=== PATIENT | male | born 1935 | race African-American/Black ===

== ENCOUNTER 2018-05-31 08:00 | Emergency (ER) | payer OTHER ==
[2018-05-31] MEDS ORDERED: ACETAMINOPHEN 325 MG TABLET (FP) ONE (08:07)
[2018-05-31 08:10] VITALS: BMI 24.7
[2018-05-31] MEDS ORDERED: SODIUM CHLORIDE 0.9% 500 ML INFUS.BAG IV ONE (09:19)
--- NOTE | 2018-05-31 09:20 | PDOC ---
History of Present Illness - General Chief Complaint: Cold Symptoms Stated Complaint: ABD PAIN Time Seen by Provider: 05/31/18 08:43 History Source: Patient Exam Limitations: No Limitations - History of Present Illness Initial Comments: 05/31/18 10:00 HPI 83 YOM with h/o CAD s/p PCI, PPM, HTN, HLD, BPH presenting with x 2 days of productive yellow cough and associated general abdominal pain with coughing fits. +subjective chills, malaise. Tolerating PO and fluid intake, had some nausea this morning with eating. Yesterday, also noted to have clear discharge from eyes, without visual changes, redness or trauma. Denies fever, chills, chest pain, SOB, palpitation, dizziness, weakness, N, V, D , bladder and bowel problems, leg swelling, no ear pain/discharge, hearing disturbances. No sick contacts or travel. No new changes in medications. Allergies: NKA Past Medical History: CAD s/p PCI, PPM, HTN, HLD, BPH Social history: Lives with family. Former smoker, quit ~30 years ago. No smoking. No alcohol. No illicit drugs. Surgical history: hernia repair, PCI ROS Constitutional: no fevers or chills. +malaise HEENT: +clear eye discharge. no headache or dizziness. No congestion. No visual/ hearing disturbances. No ear pain, tinnitis. No sore throat or odynophagia. No eye pain, redness. CVS: no cp or syncope. Resp: no sob. +Cough Gastrointestinal: +abdominal pain, No nausea or vomiting. Genitourinary: no urinary sx, hematuria. MUSCULOSKELETAL: No joint pain and swelling. No neck or back pain. SKIN: no redness or skin changes, no discharge, no rash. No wounds. Hematologic: no easy bruising/bleeding. NEUROLOGIC: No headache, dizziness, LOC or altered mental status. No weakness, numbness or tingling. Allergic/Immunologic: no allergies All other systems reviewed and negative, or as documented in HPI. PE: General: Well appearing, awake and alert, NAD. HEENT: NCAT, PERRL, EOMI, clear conjunctiva, anicteric, moist mucus membranes, clear oropharynx, no oral lesions.. Neck: neck supple, FROM; no tenderness or meningeal signs. Resp: CTAB, normal and even respirations, no respiratory distress CVS: RRR, no murmurs, 2+ peripheral pulses throughout, no peripheral edema Abdomen: soft, NTND, no peritoneal signs. No CVAT. Back: nontender, normal inspection and ROM MSK: no edema, COHEN x4, ROM intact. No clubbing or cyanosis. normal bulk and tone. Extremities: no calf tenderness Neuro: alert, oriented appropriately; no focal neurologic deficits Skin: warm and well perfused, cap refill <2 sec, normal color Past History - Past Medical History Allergies/Adverse Reactions: Allergies Allergy/AdvReac Type Severity Reaction Status Date / Time No Known Allergies Allergy Verified 05/31/18 08:04 Home Medications: Ambulatory Orders Olmesartan/Hydrochlorothiazide [Benicar Hct 20-12.5 mg Tablet] 1 each PO DAILY 01/31/12 Aspirin Coated [Ecotrin -] 81 mg PO DAILY 07/27/13 Atorvastatin Ca [Lipitor] 10 mg PO HS 07/27/13 Metoprolol Succinate [Toprol XL -] 25 mg PO DAILY 07/27/13 Famotidine [Pepcid -] 20 mg PO DAILY 11/07/14 Tamsulosin HCl [Flomax] 0.4 mg PO DAILY 11/07/14 Cetirizine HCl [24Hour Allergy] 10 mg PO DAILY #30 tablet 10/04/17 Albuterol Sulfate Inhaler - [Ventolin HFA Inhaler -] 1 - 2 inh PO Q4H PRN #1 inhaler 05/31/18 Oseltamivir Phosphate [Tamiflu -] 75 mg PO DAILY 5 Days #10 capsule 05/31/18 Cardiac Disorders: Yes COPD: No HTN: Yes - Surgical History Abdominal Surgery: Yes (Hernia repair) Cardiac Surgery: Yes (STENT X4) - Immunization History Immunization Up to Date: Yes - Suicide/Smoking/Psychosocial Hx Smoking Status: No Smoking History: Former smoker Have you smoked in the past 12 months: No Number of Cigarettes Smoked Daily: 0 If you are a former smoker, when did you quit?: 1977 Information on smoking cessation initiated: No Hx Alcohol Use: No Drug/Substance Use Hx: No Substance Use Type: None Hx Substance Use Treatment: No *Physical Exam - Vital Signs Last Vital Signs Temp Pulse Resp BP Pulse Ox 101 F H 91 H 18 116/54 L 96 05/31/18 08:09 05/31/18 08:09 05/31/18 08:09 05/31/18 08:09 05/31/18 08:09 Moderate Sedation - Procedure Monitoring Vital Signs: Procedure Monitoring Vital Signs Temperature 101 F H 05/31/18 08:09 Pulse Rate 91 H 05/31/18 08:09 Respiratory Rate 18 05/31/18 08:09 Blood Pressure 116/54 L 05/31/18 08:09 O2 Sat by Pulse Oximetry (%) 96 05/31/18 08:09 Heart Score/ECG Review - ECG Impressions Normal ECG: Yes Comment:: 05/31/18 12:55 EKG normal sinus rhythm, no interval abnormalities, narrow QRS, ST and T wave segments and morphology normal. Nonspecific T wave abnormalities ED Treatment Course - LABORATORY CBC & Chemistry Diagram: 05/31/18 10:05 05/31/18 10:05 - RADIOLOGY Radiology Studies Ordered: Category Date Time Status CHEST PA & LAT [RAD] Stat Radiology 05/31/18 09:19 Ordered Medical Decision Making - Medical Decision Making 05/31/18 10:00 See HPI for details Vital signs reviewed, +fever; normal respirations, normal SPO2. well appearing nontoxic. DDx. pneumonia, pleurisy, influenza, electrolyte/metabolic derangements. Abdominal rectus strain. dehydration. Prior notes reviewed, including admissions, discharges and consultations. laboratory results and imaging reviewed, basic labs and lytes wnl, Influenza positive A CXR_no infiltrate/consolidation, no PTX, no effusion, normal cardiac silhouette. EKG normal sinus rhythm, no interval abnormalities, narrow QRS, ST and T wave segments and morphology normal. Nonspecific T wave abnormalities ED course: tylenol, fluids for hydration, repeat VS improved. no hypoxia. normal respirations. AP likely from coughing/strain on muscles, no peritoneal findings. Tamiflu dose for the flu, given elderly age and sx onset right at borderline, but with severity and sx rx albulterol inhaler with use prn cough Q4-6 hr respiratory precautions, antipyretics, hydration, rest. avoid contacts with risk patients such as young children, elderly and immunocompromised. dispo: Pt to be discharged in stable condition. Patient and family made aware of impression and plan, return precautions discussed (including but not limited to worsening pain or symptoms), fevers, or signs of infection, chest pain, respiratory distress, inability to tolerate oral intake, dehydration, syncope, or neurologic changes). Follow up with PMD as recommended, follow up information provided, take medications as instructed for duration of time. continue with supportive care, avoid triggers and precipitants. Patient does not suffer from an acute life-threatening medical condition at this time she is safe for outpatient follow-up. 05/31/18 12:55 *DC/Admit/Observation/Transfer Diagnosis at time of Disposition: Influenza A - Discharge Dispostion Disposition: HOME Condition at time of disposition: Improved Decision to Admit order: No - Prescriptions Prescriptions: Albuterol Sulfate Inhaler - [Ventolin HFA Inhaler -] 1 - 2 inh PO Q4H PRN #1 inhaler PRN Reason: Cough Oseltamivir Phosphate [Tamiflu -] 75 mg PO DAILY 5 Days #10 capsule - Referrals Referrals: Sage Sloan MD [Primary Care Provider] - - Patient Instructions Printed Discharge Instructions: DI for Influenza -- Adult Additional Instructions: salt water gargles and warm lemon tea is appropriate as well for soothing qualities for sore throat/cough. minimize spread of infection given contagious nature, and cover your mouth and wash your hands adequately with soap and water. Stay well hydrated and rest. do not go back to work or expose yourself to elderly or young children, people with poor immune system. do not go anywhere or back to work until your fever is gone (<100.4) for at least 24 hours you are to take tamiflu twice a day x 5 days for treatment. the medication can cause you to feel miserable, nausea, vomiting, diarrhea and abdominal discomfort. May use the albuterol inhaler every 4-6 hours as needed for cough and breathing to clear up your airways. Return precautions include respiratory distress, difficulty breathing, chest pain, lethargy, confusion, dehydration, high fevers or pain. - Post Discharge Activity Forms/Work/School Notes: Back to Work
[2018-05-31] MEDS ORDERED: ALBUTEROL SO4 2.5/IPRATROPIUM 0.5 INH SOL 3 ML VIAL.NEB. NEB ONE ×2 (10:03→10:35)
[2018-05-31 10:34] LABS: BASO % 0.6 % (0-2.0); HEMATOCRIT 37.3 % (35.4-49); LYMPH % 6.8 % (8-40); MCH 29.7 pg (25.7-33.7); MCHC 34.8 g/dl (32.0-35.9); MEAN CELL VOLUME 85.5 fl (80-96); MEAN PLT VOLUME 7.4 fl (7.5-11.1); NEUT % 77.6 % (42.8-82.8); PLATELET COUNT 136 K/MM3 (134-434); RBC 4.36 M/mm3 (4.00-5.60); RDW 14.1 % (11.9-15.9); WHITE BLOOD COUNT 4.5 K/mm3 (4.0-10.0)
[2018-05-31] MEDS ORDERED: ACETAMINOPHEN INJECTION 100 ML IVPB ONE (10:35)
[2018-05-31] MEDS ORDERED: OSELTAMIVIR PHOSPHATE 75 MG CAPSULE PO ONE (11:01)
[2018-05-31 11:02] LABS: ALK PHOS 59 U/L (45-117); ANION GAP 6 MMOL/L (8-16); BILIRUBIN,TOTAL 0.4 mg/dL (0.2-1); BLOOD UREA NITROGEN 28 mg/dL (7-18); CALCIUM 8.5 mg/dL (8.5-10.1); CHLORIDE 104 mmol/L (98-107); CO2 29 mmol/L (21-32); CREATININE 1.5 mg/dL (0.55-1.3); GLUCOSE,RANDOM 133 mg/dL (74-106); POTASSIUM 3.8 mmol/L (3.5-5.1); SGOT/AST 25 U/L (15-37); SGPT/ALT 35 U/L (13-61); SODIUM 139 mmol/L (136-145); TOT PROT 7.1 g/dl (6.4-8.2)
[2018-05-31] MEDS ORDERED: OSELTAMIVIR PHOSPHATE 75 MG CAPSULE ONE (11:19)
[2018-05-31 12:47] VITALS: BP 112/62; PULSE 66; TEMP 99.5
--- NOTE | 2018-05-31 17:29 | EKG ---
Test Reason : Blood Pressure : / mmHG Vent. Rate : 065 BPM Atrial Rate : 065 BPM P-R Int : 170 ms QRS Dur : 082 ms QT Int : 382 ms P-R-T Axes : 073 074 070 degrees QTc Int : 397 ms Atrial-paced rhythm ABNORMAL ECG WHEN COMPARED WITH ECG OF 04-OCT-2017 12:30, ELECTRONIC ATRIAL PACEMAKER HAS REPLACED SINUS RHYTHM Confirmed by NIKUNJ RAYMUNDO MD ([id number]) on 05/31/2018 5:29:44 PM Referred By: Confirmed By:NIKUNJ RAYMUNDO MD
== END 2018-05-31 16:56 | disposition home or self-care (01) ==
LOC: JER 08:00
PROC: 3E0F7GC Introduction of Other Therapeutic Substance into Respiratory Tract, Via Natural or Artificial Opening (ICD-10-PCS; principal; 2018-05-31)
DX: J09.X2 Influenza due to identified novel influenza A virus with other respiratory manifestations (principal); I25.10 Atherosclerotic heart disease of native coronary artery without angina pectoris; I10 Essential (primary) hypertension; Z95.5 Presence of coronary angioplasty implant and graft; Z95.0 Presence of cardiac pacemaker; E78.5 Hyperlipidemia, unspecified; N40.0 Benign prostatic hyperplasia without lower urinary tract symptoms
CPT/HCPCS: 36415; 71046-TC-FY; 80053; 83605; 85025; 87040; 87804; 93005; 93010; 94640; 99281-25

== ENCOUNTER 2020-03-12 06:56 | Inpatient (IN) | payer OTHER ==
[2020-03-12] MEDS ORDERED: FAMOTIDINE 20 MG/50 ML IVPB 20 MG/50 ML MG IVPB ONE ×2 (07:29→07:35)
[2020-03-12] MEDS ORDERED: SODIUM CHLORIDE 1,000 ML IV STA ×2 (07:29→09:36)
[2020-03-12] MEDS ORDERED: ACETAMINOPHEN 1000 MG/100 ML VIAL (NON FORMULARY) IVPB ONE ×2 (07:30→07:52)
[2020-03-12] MEDS ORDERED: ACETAMINOPHEN INJECTION 100 ML IVPB ONE (07:35)
[2020-03-12 08:14] LABS: HEMATOCRIT 37.5 % (35.4-49); HEMOGLOBIN 12.7 GM/dL (11.7-16.9); MCH 28.9 pg (25.7-33.7); MCHC 33.8 g/dl (32.0-35.9); MEAN CELL VOLUME 85.4 fl (80-96); MEAN PLT VOLUME 7.5 fl (7.5-11.1); PLATELET COUNT 174 K/MM3 (134-434); RDW 14.4 % (11.9-15.9)
[2020-03-12 08:27] LABS: INR 0.98 (0.83-1.09); PROTHROMBIN TIME (PATIENT) 11.9 SEC (9.7-13.0)
[2020-03-12 08:29] LABS: ACTIVATED PTT 26.1 SECONDS (25.2-36.5)
[2020-03-12 08:42] LABS: ALBUMIN 3.8 g/dl (3.4-5.0); ALK PHOS 62 U/L (45-117); ANION GAP 10 MMOL/L (8-16); BILIRUBIN,TOTAL 0.6 mg/dL (0.2-1); BLOOD UREA NITROGEN 29.3 mg/dL (7-18); CALCIUM 8.6 mg/dL (8.5-10.1); CHLORIDE 106 mmol/L (98-107); CO2 23 mmol/L (21-32); CREATININE 1.3 mg/dL (0.55-1.3); GLUCOSE,RANDOM 209 mg/dL (74-106); LIPASE 98 U/L (73-393); N-TERMINAL BNP 37.2 pg/ml (5-450); SGOT/AST 28 U/L (15-37); SGPT/ALT 31 U/L (13-61); SODIUM 140 mmol/L (136-145); TOT PROT 7.4 g/dl (6.4-8.2)
[2020-03-12] MEDS ORDERED: morphine CARPU-JECT 4 MG/1 ML DISP.SYRIN IVPUSH ONE (08:56)
[2020-03-12] MEDS ORDERED: morphine SULFATE 4 MG/ML VIAL ONE (09:16)
[2020-03-12] MEDS ORDERED: LABETALOL HCL 5 MG/1 ML (100MG/20 ML VIAL) IVPUSH ONE (10:39)
[2020-03-12 12:28] LABS: URINE APPEARANCE CLEAR; URINE BILIRUBIN NEGATIVE (NEGATIVE); URINE COLOR YELLOW; URINE GLUCOSE (UA) NEGATIVE (NEGATIVE); URINE KETONE NEGATIVE (NEGATIVE)
[2020-03-12 12:29] LABS: EPI CELLS 2.8 /uL (0-25.1); HYALINE CASTS 0.7 /uL (0-3.1); URINE BACTERIA 28.6 /uL (0-1359); URINE LEUK ESTERASE NEGATIVE (NEGATIVE); URINE NITRITE NEGATIVE (NEGATIVE); URINE PROTEIN NEGATIVE (NEGATIVE); URINE RBC 8.6 /uL (0-23.9); URINE UROBILINOGEN 0.2 mg/dL (0.2-1.0); URINE WBC 3.4 /uL (0-25.8)
[2020-03-12] MEDS ORDERED: ALBUTEROL SO4 HFA INHALER IH PRN (13:27)
[2020-03-12] MEDS ORDERED: LABETALOL HCL 5 MG/1 ML (200MG/40ML VIAL) IVPB ONE (16:11)
[2020-03-12] MEDS ORDERED: ATORVASTATIN CA 80 MG TABLET (FP) ONE (21:08)
[2020-03-12] MEDS ORDERED: ATORVASTATIN CA 80 MG TABLET (FP) PO SCH (22:00)
[2020-03-13 04:38] VITALS: BMI 24.3
[2020-03-13 07:11] LABS: HEMATOCRIT 35.5 % (35.4-49); HEMOGLOBIN 11.9 GM/dL (11.7-16.9); MCH 28.3 pg (25.7-33.7); MCHC 33.5 g/dl (32.0-35.9); MEAN CELL VOLUME 84.4 fl (80-96); MEAN PLT VOLUME 7.3 fl (7.5-11.1); PLATELET COUNT 154 K/MM3 (134-434); RDW 14.4 % (11.9-15.9); WHITE BLOOD COUNT 10.6 K/mm3 (4.0-10.0)
[2020-03-13 07:22] LABS: POTASSIUM 3.6 mmol/L (3.5-5.1)
[2020-03-13 07:24] LABS: CALCIUM 8.5 mg/dL (8.5-10.1)
[2020-03-13 07:25] LABS: ALBUMIN 3.6 g/dl (3.4-5.0); BLOOD UREA NITROGEN 27.9 mg/dL (7-18); MAGNESIUM 2.1 mg/dL (1.8-2.4)
[2020-03-13 07:28] LABS: CREATININE 1.3 mg/dL (0.55-1.3); PHOSPHOROUS 2.2 mg/dL (2.5-4.9)
[2020-03-13 07:29] LABS: BILIRUBIN,TOTAL 0.8 mg/dL (0.2-1)
[2020-03-13 07:30] LABS: TOT PROT 6.6 g/dl (6.4-8.2)
[2020-03-13] MEDS ORDERED: PT OWN MED DRAWER 7, Y5N ONE (08:58)
[2020-03-13] MEDS: metoPROLOL SUCCINATE 25 MG TAB.SR.24H (FP) PO SCH (09:04)
[2020-03-13] MEDS: VALSARTAN 160 MG TABLET PO SCH (09:04)
[2020-03-13] MEDS: HYDROCHLOROTHIAZIDE 12.5 MG CAPSULE (FP) PO SCH (09:04)
[2020-03-13] MEDS ORDERED: PNEUMOC 13-VAL CONJ-DIP CRM/PF 0.5 ML DISP.SYRIN IM ONE (10:00)
[2020-03-13] MEDS ORDERED: PATIENT'S OWN MEDICATION (NON-FORMULARY) (Olmesartan/Hydrochlorothiazide [Benicar Hct 20-1 PO SCH (10:00)
[2020-03-13] MEDS ORDERED: FAMOTIDINE 20 MG TABLET PO SCH (10:00)
[2020-03-13] MEDS ORDERED: ASPIRIN COATED 81 MG TABLET.EC PO SCH (10:00)
[2020-03-13] MEDS: ASPIRIN 81 MG CHEWABLE TABLETS PO SCH (17:31)
[2020-03-13] MEDS: PANTOPRAZOLE SODIUM 40 MG VIAL IVPUSH SCH (17:31)
[2020-03-13] MEDS: ATORVASTATIN CA 10 MG TABLET (FP) PO SCH (21:43)
[2020-03-14 07:00] LABS: BASO % 0.3 % (0-2.0); EOS % 0.9 % (0-4.5); HEMATOCRIT 33.7 % (35.4-49); HEMOGLOBIN 11.3 GM/dL (11.7-16.9); LYMPH % 10.2 % (8-40); MCH 28.2 pg (25.7-33.7); MCHC 33.5 g/dl (32.0-35.9); MEAN CELL VOLUME 84.2 fl (80-96); MEAN PLT VOLUME 7.7 fl (7.5-11.1); MONO % 8.1 % (3.8-10.2); NEUT % 80.5 % (42.8-82.8); PLATELET COUNT 142 K/MM3 (134-434); RDW 14.2 % (11.9-15.9); WHITE BLOOD COUNT 11.6 K/mm3 (4.0-10.0)
[2020-03-14 07:36] LABS: POTASSIUM 3.4 mmol/L (3.5-5.1)
[2020-03-14 07:43] LABS: ALBUMIN 3.1 g/dl (3.4-5.0)
[2020-03-14 07:44] LABS: BLOOD UREA NITROGEN 24.8 mg/dL (7-18); MAGNESIUM 1.9 mg/dL (1.8-2.4)
[2020-03-14 07:47] LABS: CREATININE 1.4 mg/dL (0.55-1.3); PHOSPHOROUS 2.9 mg/dL (2.5-4.9)
[2020-03-14 07:48] LABS: TOT PROT 6.3 g/dl (6.4-8.2)
[2020-03-14 07:51] LABS: BILIRUBIN,TOTAL 0.9 mg/dL (0.2-1)
[2020-03-14] MEDS: PANTOPRAZOLE SODIUM 40 MG VIAL IVPUSH SCH (09:17)
[2020-03-14] MEDS: VALSARTAN 160 MG TABLET PO SCH (09:17)
[2020-03-14] MEDS: metoPROLOL SUCCINATE 25 MG TAB.SR.24H (FP) PO SCH (09:17)
[2020-03-14] MEDS: HYDROCHLOROTHIAZIDE 12.5 MG CAPSULE (FP) PO SCH (09:17)
[2020-03-14] MEDS: ASPIRIN 81 MG CHEWABLE TABLETS PO SCH (09:17)
[2020-03-14] MEDS ORDERED: POTASSIUM CHLORIDE TABS 20 MEQ TABLET.ER (FP) PO ONE (09:37)
[2020-03-14 14:59] LABS: URINE APPEARANCE CLEAR; URINE BILIRUBIN NEGATIVE (NEGATIVE); URINE COLOR YELLOW; URINE GLUCOSE (UA) NEGATIVE (NEGATIVE); URINE KETONE NEGATIVE (NEGATIVE); URINE LEUK ESTERASE NEGATIVE (NEGATIVE); URINE NITRITE NEGATIVE (NEGATIVE); URINE PROTEIN NEGATIVE (NEGATIVE); URINE UROBILINOGEN 0.2 mg/dL (0.2-1.0)
[2020-03-14] MEDS: ATORVASTATIN CA 10 MG TABLET (FP) PO SCH (21:49)
[2020-03-15 07:18] LABS: BASO % 0.5 % (0-2.0); EOS % 3.7 % (0-4.5); HEMATOCRIT 38.7 % (35.4-49); HEMOGLOBIN 12.9 GM/dL (11.7-16.9); LYMPH % 21.9 % (8-40); MCH 28.2 pg (25.7-33.7); MCHC 33.2 g/dl (32.0-35.9); MEAN CELL VOLUME 84.8 fl (80-96); NEUT % 65.9 % (42.8-82.8); PLATELET COUNT 165 K/MM3 (134-434); RBC 4.56 M/mm3 (4.00-5.60); RDW 14.5 % (11.9-15.9); WHITE BLOOD COUNT 8.5 K/mm3 (4.0-10.0)
[2020-03-15 07:22] LABS: POTASSIUM 3.7 mmol/L (3.5-5.1)
[2020-03-15 07:31] LABS: BILIRUBIN,TOTAL 0.6 mg/dL (0.2-1); TOT PROT 7.1 g/dl (6.4-8.2)
[2020-03-15 07:42] LABS: CALCIUM 8.4 mg/dL (8.5-10.1)
[2020-03-15 07:43] LABS: ALBUMIN 3.5 g/dl (3.4-5.0); BLOOD UREA NITROGEN 21.1 mg/dL (7-18); MAGNESIUM 2.2 mg/dL (1.8-2.4)
[2020-03-15 07:46] LABS: CREATININE 1.3 mg/dL (0.55-1.3)
[2020-03-15] MEDS ORDERED: POTASSIUM CHLORIDE TABS 20 MEQ TABLET.ER (FP) PO ONE (09:15)
[2020-03-15] MEDS: VALSARTAN 160 MG TABLET PO SCH (09:19)
[2020-03-15] MEDS: metoPROLOL SUCCINATE 25 MG TAB.SR.24H (FP) PO SCH (09:20)
[2020-03-15] MEDS: PANTOPRAZOLE SODIUM 40 MG VIAL IVPUSH SCH (09:20)
[2020-03-15] MEDS: ASPIRIN 81 MG CHEWABLE TABLETS PO SCH (09:21)
[2020-03-15] MEDS: HYDROCHLOROTHIAZIDE 12.5 MG CAPSULE (FP) PO SCH (09:21)
[2020-03-15] MEDS ORDERED: PT OWN MED DRAWER 7, Y5N ONE (10:52)
[2020-03-15] MEDS: TAMSULOSIN HCL 0.4 MG CAP PO SCH (11:55)
[2020-03-15] MEDS ORDERED: ALBUTEROL SO4 HFA INHALER IH PRN (15:28)
[2020-03-15] MEDS ORDERED: ACETAMINOPHEN 325 MG TABLET (FP) PO PRN (20:29)
[2020-03-15] MEDS ORDERED: ATORVASTATIN CA 10 MG TABLET (FP) PO SCH (22:00)
[2020-03-16] MEDS: TAMSULOSIN HCL 0.4 MG CAP PO SCH (09:14)
[2020-03-16] MEDS ORDERED: VALSARTAN 160 MG TABLET PO SCH (10:00)
[2020-03-16] MEDS ORDERED: ASPIRIN 81 MG CHEWABLE TABLETS PO SCH (10:00)
[2020-03-16] MEDS ORDERED: HYDROCHLOROTHIAZIDE 12.5 MG CAPSULE (FP) PO SCH (10:00)
[2020-03-16] MEDS ORDERED: PANTOPRAZOLE SODIUM 40 MG VIAL IVPUSH SCH (10:00)
[2020-03-16] MEDS ORDERED: metoPROLOL SUCCINATE 25 MG TAB.SR.24H (FP) PO SCH (10:00)
[2020-03-16 12:47] VITALS: BP 138/78; PULSE 80; TEMP 98.1
== END 2020-03-16 13:33 | disposition home or self-care (01) | DRG 392 ==
LOC: JER 06:56 → JERBED 11:22 → J4S 03-13 03:23 → J6S 03-15 14:57
PROVIDERS: ATTEND Internal Medicine
DX: K59.00 Constipation, unspecified (principal); K92.1 Melena; K86.89 Other specified diseases of pancreas; I25.10 Atherosclerotic heart disease of native coronary artery without angina pectoris; I10 Essential (primary) hypertension; E78.5 Hyperlipidemia, unspecified; N40.0 Benign prostatic hyperplasia without lower urinary tract symptoms; K76.0 Fatty (change of) liver, not elsewhere classified; I25.2 Old myocardial infarction; R07.89 Other chest pain; Z95.0 Presence of cardiac pacemaker; Z95.5 Presence of coronary angioplasty implant and graft
CPT/HCPCS: 36415; 71045-TC-FY; 71275-TC; 74177-TC; 76700-TC; 76775-TC; 80053; 81003; 82272; 82550; 83036; 83605; 83690; 83735; 83880; 84100; 84443; 84484; 84703; 85025; 85027; 85610; 85730; 86780; 86850; 86900; 86901; 87086; 90670; 93005; 93010; 99285-25; C9803; J0131; Q9967; U0003

== ENCOUNTER 2021-09-16 09:39 | Emergency (ER) | payer MEDICARE, OTHER ==
[2021-09-16 09:53] VITALS: TEMP 98; BMI 26.9
[2021-09-16 11:46] LABS: BASO % 0.7 % (0-2.0); EOS % 3.7 % (0-4.5); HEMATOCRIT 35.1 % (35.4-49); HEMOGLOBIN 11.8 GM/dL (11.7-16.9); LYMPH % 18.6 % (8-40); MCH 28.4 pg (25.7-33.7); MCHC 33.6 g/dl (32.0-35.9); MEAN CELL VOLUME 84.4 fl (80-96); MEAN PLT VOLUME 7.8 fl (7.5-11.1); MONO % 12.6 % (3.8-10.2); NEUT % 64.4 % (42.8-82.8); PLATELET COUNT 117 10^3/uL (134-434); RBC 4.16 M/mm3 (4.00-5.60); RDW 14.3 % (11.9-15.9); WHITE BLOOD COUNT 4.8 K/mm3 (4.0-10.0)
[2021-09-16 11:56] LABS: INR 1.08 (0.83-1.09); PROTHROMBIN TIME (PATIENT) 12.4 SEC (9.7-13.0)
[2021-09-16 12:07] LABS: BLOOD UREA NITROGEN 24.2 mg/dL (7-18); CALCIUM 8.9 mg/dL (8.5-10.1)
[2021-09-16 12:08] LABS: ALBUMIN 3.6 g/dl (3.4-5.0)
[2021-09-16 12:11] LABS: CREATININE 1.3 mg/dL (0.55-1.3)
[2021-09-16 12:12] LABS: BILIRUBIN,TOTAL 0.3 mg/dL (0.2-1); TOT PROT 6.8 g/dl (6.4-8.2)
[2021-09-16] MEDS ORDERED: ACETAMINOPHEN 1000 MG/100 ML BAG IVPB ONE (12:29)
[2021-09-16] MEDS ORDERED: SODIUM CHLORIDE 0.9% 1000 ML INFUS.BAG IV ONE (12:29)
[2021-09-16] MEDS ORDERED: BEBTELOVIMAB (EUA) 175 MG/2 ML VIAL IVPUSH ONE (12:30)
[2021-09-16 12:35] LABS: EPI CELLS 3 /uL (0-25.1); HYALINE CASTS 1 /uL (0-3.1); URINE APPEARANCE CLEAR; URINE BACTERIA 2 /uL (0-1359); URINE BILIRUBIN NEGATIVE (NEGATIVE); URINE COLOR YELLOW; URINE GLUCOSE (UA) NEGATIVE (NEGATIVE); URINE KETONE NEGATIVE (NEGATIVE); URINE LEUK ESTERASE NEGATIVE (NEGATIVE); URINE NITRITE NEGATIVE (NEGATIVE); URINE PROTEIN 1+ (NEGATIVE); URINE RBC 7 /uL (0-23.9); URINE UROBILINOGEN 0.2 mg/dL (0.2-1.0); URINE WBC 5 /uL (0-25.8)
[2021-09-16] MEDS ORDERED: ACETAMINOPHEN INJECTION 100 ML IVPB ONE (12:38)
[2021-09-16 16:21] VITALS: BP 183/81; PULSE 67
== END 2021-09-16 16:47 | disposition home or self-care (01) ==
LOC: JER 09:39
PROC: 3E033GC Introduction of Other Therapeutic Substance into Peripheral Vein, Percutaneous Approach (ICD-10-PCS; principal; 2021-09-16)
DX: U07.1 COVID-19 (principal)
CPT/HCPCS: 0241U-QW; 36415; 71045-TC-FY; 80053; 81003; 82962; 83605; 83735; 84484; 85025; 85610; 85730; 87040; 87086; 93005; 93010; 99285-25; Q0222

== ENCOUNTER 2022-01-19 17:49 | Emergency (ER) | payer OTHER ==
[2022-01-19 17:55] VITALS: BP 189/82; PULSE 79; RESP 18; TEMP 97.8; BMI 22.6
[2022-01-19] MEDS ORDERED: DIPHTH,PERTUSS(ACELL),TET 0.5 ML DISP.SYRIN IM ONE ×2 (19:49→20:09)
[2022-01-19 21:17] LABS: BASO % 0.3 % (0-2.0); EOS % 2.6 % (0-4.5); HEMATOCRIT 34.7 % (35.4-49); HEMOGLOBIN 11.6 GM/dL (11.7-16.9); LYMPH % 22.3 % (8-40); MCH 27.8 pg (25.7-33.7); MCHC 33.5 g/dl (32.0-35.9); MONO % 10.2 % (3.8-10.2); NEUT % 64.6 % (42.8-82.8); PLATELET COUNT 143 10^3/uL (134-434); RBC 4.18 M/mm3 (4.00-5.60); RDW 14.7 % (11.9-15.9); WHITE BLOOD COUNT 7.4 K/mm3 (4.0-10.0)
[2022-01-19 21:25] LABS: CALCIUM 8.1 mg/dL (8.5-10.1)
[2022-01-19 21:26] LABS: ALBUMIN 3.4 g/dl (3.4-5.0); BLOOD UREA NITROGEN 19.7 mg/dL (7-18)
[2022-01-19 21:29] LABS: CREATININE 1.2 mg/dL (0.55-1.3)
[2022-01-19 21:30] LABS: BILIRUBIN,TOTAL 0.5 mg/dL (0.2-1); TOT PROT 6.5 g/dl (6.4-8.2)
== END 2022-01-20 00:09 | disposition home or self-care (01) ==
LOC: JER 17:49
PROC: 3E0234Z Introduction of Serum, Toxoid and Vaccine into Muscle, Percutaneous Approach (ICD-10-PCS; principal; 2022-01-19)
DX: M25.512 Pain in left shoulder (principal); W17.89XA Other fall from one level to another, initial encounter
CPT/HCPCS: 0241U-QW; 36415; 70450-TC; 71045-TC-FY; 72125-TC; 72170-TC-FY; 73502-TC-LT-FY; 73562-TC-LT-FY; 80053; 85025; 86850; 86900; 86901; 90471; 90715; 99285-25

== ENCOUNTER 2022-01-27 12:34 | Emergency (ER) | payer OTHER ==
[2022-01-27 12:57] VITALS: BMI 23.8
[2022-01-27] MEDS ORDERED: SODIUM CHLORIDE 1,000 ML IV STA (15:37)
[2022-01-27 15:38] VITALS: BP 204/93; PULSE 74; RESP 16; TEMP 98.4
[2022-01-27] MEDS ORDERED: ONDANSETRON 4 MG/2 ML VIAL IVPUSH ONE (15:43)
[2022-01-27 16:27] LABS: BASO % 0.1 % (0-2.0); EOS % 0.1 % (0-4.5); HEMOGLOBIN 12.2 GM/dL (11.7-16.9); MCH 27.7 pg (25.7-33.7); MCHC 32.9 g/dl (32.0-35.9); MEAN CELL VOLUME 84.1 fl (80-96); MEAN PLT VOLUME 7.6 fl (7.5-11.1); MONO % 5.6 % (3.8-10.2); NEUT % 83.2 % (42.8-82.8); PLATELET COUNT 203 10^3/uL (134-434); RDW 14.7 % (11.9-15.9); WHITE BLOOD COUNT 9.2 K/mm3 (4.0-10.0)
[2022-01-27] MEDS ORDERED: ONDANSETRON 4 MG/2 ML VIAL ONE (16:34)
[2022-01-27 16:37] LABS: INR 1.07 (0.83-1.09); PROTHROMBIN TIME (PATIENT) 12.3 SEC (9.7-13.0)
[2022-01-27 16:41] LABS: ACTIVATED PTT 26.8 SECONDS (25.2-36.5)
[2022-01-27 16:48] LABS: ALBUMIN 3.8 g/dl (3.4-5.0); BLOOD UREA NITROGEN 30.3 mg/dL (7-18); CALCIUM 9.3 mg/dL (8.5-10.1)
[2022-01-27 16:51] LABS: CREATININE 1.4 mg/dL (0.55-1.3)
[2022-01-27 16:52] LABS: BILIRUBIN,TOTAL 0.6 mg/dL (0.2-1); TOT PROT 7.5 g/dl (6.4-8.2)
[2022-01-27 18:41] LABS: EPI CELLS 3 /uL (0-25.1); HYALINE CASTS 0 /uL (0-3.1); PH,URINE 5.5 (5.0-8.0); URINE APPEARANCE CLEAR; URINE BACTERIA 2 /uL (0-1359); URINE BILIRUBIN NEGATIVE (NEGATIVE); URINE COLOR YELLOW; URINE GLUCOSE (UA) NEGATIVE (NEGATIVE); URINE KETONE NEGATIVE (NEGATIVE); URINE LEUK ESTERASE NEGATIVE (NEGATIVE); URINE NITRITE NEGATIVE (NEGATIVE); URINE PROTEIN TRACE (NEGATIVE); URINE RBC 6 /uL (0-23.9); URINE UROBILINOGEN 0.2 mg/dL (0.2-1.0); URINE WBC 4 /uL (0-25.8)
== END 2022-01-27 19:36 | disposition left against medical advice (07) ==
LOC: JER 12:34
PROC: 3E033GC Introduction of Other Therapeutic Substance into Peripheral Vein, Percutaneous Approach (ICD-10-PCS; principal; 2022-01-27)
PROC: 3E0337Z Introduction of Electrolytic and Water Balance Substance into Peripheral Vein, Percutaneous Approach (ICD-10-PCS; 2022-01-27)
DX: R42 Dizziness and giddiness (principal); R11.2 Nausea with vomiting, unspecified
CPT/HCPCS: 36415; 70450-TC; 71045-TC-FY; 80053; 81003; 83690; 84484; 85025; 85610; 85730; 87086; 93005; 93010; 99285-25; C9803-CS; U0003; U0005

== ENCOUNTER 2022-08-07 16:59 | Emergency (ER) | payer OTHER ==
[2022-08-07 17:36] VITALS: BP 157/76; PULSE 68; RESP 18; TEMP 98; BMI 25.4
[2022-08-07] MEDS ORDERED: DIPHTH,PERTUSS(ACELL),TET 0.5 ML DISP.SYRIN IM ONE ×2 (18:36→18:49)
== END 2022-08-07 22:14 | disposition home or self-care (01) ==
LOC: JER 16:59
PROC: 0HQ0XZZ Repair Scalp Skin, External Approach (ICD-10-PCS; principal; 2022-08-07)
DX: S01.81XA Laceration without foreign body of other part of head, initial encounter (principal); S60.221A Contusion of right hand, initial encounter; W10.1XXA Fall (on)(from) sidewalk curb, initial encounter; Y93.01 Activity, walking, marching and hiking
CPT/HCPCS: 12001-25; 70450-TC; 70486-TC; 72125-TC; 73130-TC-RT-FY; 82962; 93005; 93010; 99284-25

== ENCOUNTER 2022-10-06 05:42 | Observation (INO) | payer OTHER ==
[2022-10-06 05:51] VITALS: BMI 24.6
[2022-10-06] MEDS ORDERED: CEFTRIAXONE 1,000 MG in DEXTROSE 5%-WATER - 50 ML IVPB ONE (06:10)
[2022-10-06] MEDS ORDERED: ACETAMINOPHEN 500 MG TABLET (FP) PO ONE (06:22)
[2022-10-06] MEDS ORDERED: ACETAMINOPHEN 325 MG TABLET (FP) ONE (06:30)
[2022-10-06] MEDS ORDERED: CEFTRIAXONE 1 GM/50 ML BAG ONE (06:30)
[2022-10-06 06:34] LABS: EPI CELLS 9 /uL (0-25.1); HYALINE CASTS 2 /uL (0-3.1); URINE APPEARANCE TURBID; URINE BACTERIA >9,000 /uL (0-1359); URINE BILIRUBIN NEGATIVE (NEGATIVE); URINE COLOR DK YELLOW; URINE GLUCOSE (UA) NEGATIVE (NEGATIVE); URINE KETONE TRACE (NEGATIVE); URINE LEUK ESTERASE 2+ (NEGATIVE); URINE NITRITE POSITIVE (NEGATIVE); URINE PROTEIN 3+ (NEGATIVE); URINE RBC 302 /uL (0-23.9); URINE WBC 3394 /uL (0-25.8)
[2022-10-06 06:42] LABS: BASO % 0.7 % (0-2.0); EOS % 2.5 % (0-4.5); HEMATOCRIT 35.7 % (35.4-49); HEMOGLOBIN 11.9 GM/dL (11.7-16.9); LYMPH % 7.2 % (8-40); MCH 27.9 pg (25.7-33.7); MCHC 33.3 g/dl (32.0-35.9); MEAN CELL VOLUME 83.8 fl (80-96); MEAN PLT VOLUME 8.1 fl (7.5-11.1); MONO % 6.2 % (3.8-10.2); NEUT % 83.4 % (42.8-82.8); PLATELET COUNT 145 10^3/uL (134-434); RBC 4.26 M/mm3 (4.00-5.60); RDW 15.2 % (11.9-15.9); WHITE BLOOD COUNT 16.4 K/mm3 (4.0-10.0)
[2022-10-06 07:33] LABS: POTASSIUM 3.5 mmol/L (3.5-5.1)
[2022-10-06 07:35] LABS: ALBUMIN 3.2 g/dl (3.4-5.0); BLOOD UREA NITROGEN 31.3 mg/dL (7-18); CALCIUM 8.5 mg/dL (8.5-10.1)
[2022-10-06 07:38] LABS: CREATININE 1.7 mg/dL (0.55-1.3)
[2022-10-06 07:40] LABS: BILIRUBIN,TOTAL 0.7 mg/dL (0.2-1)
[2022-10-06] MEDS ORDERED: SODIUM CHLORIDE 0.9% 500 ML INFUS.BAG IV ONE (08:16)
[2022-10-06] MEDS ORDERED: LACTATED RINGERS SOLUTION 1,000 ML/1,000 ML INFUS.BAG IV SCH (09:45)
[2022-10-06] MEDS ORDERED: ACETAMINOPHEN 500 MG TABLET (FP) PO PRN (09:58)
[2022-10-06] MEDS: CEFTRIAXONE 1 GM in DEXTROSE 5%-WATER - 50 ML IVPB SCH (10:29)
[2022-10-06] MEDS: HEPARIN NA (PORCINE) 5,000 UNITS/ML 1ML VIAL SQ SCH ×2 (10:47→22:38)
[2022-10-07] MEDS ORDERED: MELATONIN 5 MG TABLETS PO ONE (00:54)
[2022-10-07 08:48] LABS: BASO % 0.3 % (0-2.0); EOS % 2.6 % (0-4.5); HEMATOCRIT 34.9 % (35.4-49); MCH 28.2 pg (25.7-33.7); MCHC 34.4 g/dl (32.0-35.9); MEAN CELL VOLUME 82.1 fl (80-96); MEAN PLT VOLUME 7.6 fl (7.5-11.1); MONO % 7.9 % (3.8-10.2); NEUT % 79.2 % (42.8-82.8); PLATELET COUNT 158 10^3/uL (134-434); RBC 4.25 M/mm3 (4.00-5.60); RDW 14.6 % (11.9-15.9)
[2022-10-07 09:09] LABS: POTASSIUM 3.7 mmol/L (3.5-5.1)
[2022-10-07 09:13] LABS: CALCIUM 8.5 mg/dL (8.5-10.1)
[2022-10-07 09:15] LABS: CREATININE 1.5 mg/dL (0.55-1.3)
[2022-10-07] MEDS: CEFTRIAXONE 1 GM in DEXTROSE 5%-WATER - 50 ML IVPB SCH (10:13)
[2022-10-07] MEDS: HEPARIN NA (PORCINE) 5,000 UNITS/ML 1ML VIAL SQ SCH ×2 (10:13→21:39)
[2022-10-07] MEDS: ATORVASTATIN CA 10 MG TABLET (FP) PO SCH (21:38)
[2022-10-08 07:49] LABS: BASO % 0.4 % (0-2.0); EOS % 8.3 % (0-4.5); LYMPH % 20.4 % (8-40); MCH 27.7 pg (25.7-33.7); MCHC 33.5 g/dl (32.0-35.9); MEAN CELL VOLUME 82.7 fl (80-96); MEAN PLT VOLUME 7.5 fl (7.5-11.1); MONO % 14.4 % (3.8-10.2); NEUT % 56.5 % (42.8-82.8); PLATELET COUNT 162 10^3/uL (134-434); RBC 4.35 M/mm3 (4.00-5.60); RDW 14.4 % (11.9-15.9); WHITE BLOOD COUNT 5.7 K/mm3 (4.0-10.0)
[2022-10-08 07:56] LABS: POTASSIUM 3.5 mmol/L (3.5-5.1)
[2022-10-08 08:01] LABS: CALCIUM 8.8 mg/dL (8.5-10.1)
[2022-10-08 08:02] LABS: BLOOD UREA NITROGEN 17.5 mg/dL (7-18); MAGNESIUM 1.9 mg/dL (1.8-2.4)
[2022-10-08 08:05] LABS: CREATININE 1.4 mg/dL (0.55-1.3)
[2022-10-08 08:06] LABS: BILIRUBIN,TOTAL 0.7 mg/dL (0.2-1)
[2022-10-08 08:07] LABS: TOT PROT 6.6 g/dl (6.4-8.2)
[2022-10-08] MEDS ORDERED: TAMSULOSIN HCL 0.4 MG CAP PO SCH (10:00)
[2022-10-08] MEDS: PANTOPRAZOLE 40 MG TABLET PO SCH (10:51)
[2022-10-08] MEDS: CEFTRIAXONE 1 GM in DEXTROSE 5%-WATER - 50 ML IVPB SCH (10:51)
[2022-10-08] MEDS: HEPARIN NA (PORCINE) 5,000 UNITS/ML 1ML VIAL SQ SCH ×2 (10:51→21:37)
[2022-10-08] MEDS: metoPROLOL SUCCINATE 25 MG TAB.SR.24H (FP) PO SCH (10:51)
[2022-10-08] MEDS: ASPIRIN COATED 81 MG TABLET.EC PO SCH (10:52)
[2022-10-08] MEDS: ATORVASTATIN CA 10 MG TABLET (FP) PO SCH (21:38)
[2022-10-09] MEDS ORDERED: TAMSULOSIN HCL 0.4 MG CAP PO SCH (08:30)
[2022-10-09 09:04] VITALS: BP 162/81; PULSE 65; RESP 18; TEMP 98.1
[2022-10-09] MEDS: ASPIRIN COATED 81 MG TABLET.EC PO SCH (09:42)
[2022-10-09] MEDS: PANTOPRAZOLE 40 MG TABLET PO SCH (09:43)
[2022-10-09] MEDS: metoPROLOL SUCCINATE 25 MG TAB.SR.24H (FP) PO SCH (09:43)
[2022-10-09] MEDS: HEPARIN NA (PORCINE) 5,000 UNITS/ML 1ML VIAL SQ SCH (09:43)
[2022-10-09] MEDS ORDERED: CEFTRIAXONE 1 GM in DEXTROSE 5%-WATER - 50 ML IVPB SCH (10:00)
[2022-10-09] MEDS ORDERED: CEPHALEXIN MONOHYDRATE 500 MG CAPSULE (UD) PO SCH (22:00)
[2022-10-10] MEDS ORDERED: CEPHALEXIN MONOHYDRATE 500 MG CAPSULE (UD) PO SCH (10:00)
== END 2022-10-09 13:02 | disposition home health service (06) ==
LOC: JER 05:42 → JERBED 09:26 → J7W 10:16
PROVIDERS: ADMIT Internal Medicine; ATTEND Nurse Practitioner Acute Care
PROC: 3E03329 Introduction of Other Anti-infective into Peripheral Vein, Percutaneous Approach (ICD-10-PCS; principal; 2022-10-06)
PROC: 3E023GC Introduction of Other Therapeutic Substance into Muscle, Percutaneous Approach (ICD-10-PCS; 2022-10-06)
PROC: 3E0337Z Introduction of Electrolytic and Water Balance Substance into Peripheral Vein, Percutaneous Approach (ICD-10-PCS; 2022-10-06)
DX: N39.0 Urinary tract infection, site not specified (principal); R31.9 Hematuria, unspecified; N17.9 Acute kidney failure, unspecified; E07.9 Disorder of thyroid, unspecified; I25.10 Atherosclerotic heart disease of native coronary artery without angina pectoris; I10 Essential (primary) hypertension; R31.0 Gross hematuria; E78.5 Hyperlipidemia, unspecified; F03.90 Unspecified dementia, unspecified severity, without behavioral disturbance, psychotic disturbance, mood disturbance, and anxiety; Z29.9 Encounter for prophylactic measures, unspecified; R22.1 Localized swelling, mass and lump, neck; Z95.0 Presence of cardiac pacemaker; Z95.5 Presence of coronary angioplasty implant and graft; Z87.891 Personal history of nicotine dependence; N40.0 Benign prostatic hyperplasia without lower urinary tract symptoms
CPT/HCPCS: 36415; 70491-TC; 76775-TC; 80048; 80053; 81003; 83735; 84439; 84443; 84481; 85025; 87086; 87186; 96361; 96365; 96366; 96372; 99285-25; G0378; J1644; Q9967

== ENCOUNTER 2024-05-15 03:53 | Inpatient (IN) | payer OTHER ==
[2024-05-15 05:40] LABS: POTASSIUM 3.9 mmol/L (3.5-5.1)
[2024-05-15 05:42] LABS: BLOOD UREA NITROGEN 20.6 mg/dL (7-18); CALCIUM 8.6 mg/dL (8.5-10.1)
[2024-05-15 05:43] LABS: ALBUMIN 3.6 g/dl (3.4-5.0)
[2024-05-15 05:46] LABS: CREATININE 1.6 mg/dL (0.55-1.3)
[2024-05-15 05:47] LABS: BILIRUBIN,TOTAL 0.3 mg/dL (0.2-1); TOT PROT 6.9 g/dl (6.4-8.2)
[2024-05-15 05:56] LABS: BASO % 0.9 % (0-2.0); EOS % 7.4 % (0-4.5); HEMATOCRIT 38.9 % (35.4-49); HEMOGLOBIN 12.6 GM/dL (11.7-16.9); MCH 27.6 pg (25.7-33.7); MCHC 32.5 g/dl (32.0-35.9); MEAN CELL VOLUME 84.9 fl (80-96); MEAN PLT VOLUME 7.7 fl (7.5-11.1); MONO % 8.5 % (3.8-10.2); NEUT % 60.2 % (42.8-82.8); PLATELET COUNT 169 10^3/uL (134-434); RBC 4.58 M/mm3 (4.00-5.60); RDW 15.1 % (11.9-15.9); WHITE BLOOD COUNT 6.3 K/mm3 (4.0-10.0)
[2024-05-15 08:22] LABS: EPI CELLS 2 /uL (0-25.1); HYALINE CASTS 0 /uL (0-3.1); PH,URINE 6.5 (5.0-8.0); URINE APPEARANCE CLEAR; URINE BACTERIA 2 /uL (0-1359); URINE BILIRUBIN NEGATIVE (NEGATIVE); URINE COLOR YELLOW; URINE GLUCOSE (UA) NEGATIVE (NEGATIVE); URINE KETONE NEGATIVE (NEGATIVE); URINE LEUK ESTERASE NEGATIVE (NEGATIVE); URINE NITRITE NEGATIVE (NEGATIVE); URINE PROTEIN 1+ (NEGATIVE); URINE RBC 6 /uL (0-23.9); URINE UROBILINOGEN 0.2 mg/dL (0.2-1.0); URINE WBC 5 /uL (0-25.8)
[2024-05-15] MEDS ORDERED: ACETAMINOPHEN 325 MG TABLET (FP) PO PRN (09:42)
[2024-05-15] MEDS ORDERED: PATIENT'S OWN MEDICATION (NON-FORMULARY) (Olmesartan/Hydrochlorothiazide [Benicar Hct 20-1 PO SCH (10:00)
[2024-05-15] MEDS ORDERED: PANTOPRAZOLE 40 MG TABLET PO ONE (10:03)
[2024-05-15] MEDS ORDERED: LOSARTAN POTASSIUM 50 MG TABLET ONE (10:03)
[2024-05-15] MEDS ORDERED: TAMSULOSIN HCL 0.4 MG CAP ONE (10:03)
[2024-05-15] MEDS ORDERED: ASPIRIN COATED 81 MG TABLET.EC ONE (10:03)
[2024-05-15] MEDS ORDERED: HYDROCHLOROTHIAZIDE 25 MG TABLET (FP) ONE (10:03)
[2024-05-15] MEDS ORDERED: metoPROLOL SUCCINATE 25 MG TAB.SR.24H (FP) PO ONE (10:03)
[2024-05-15] MEDS ORDERED: HEPARIN NA (PORCINE) 5,000 UNITS/ML 1ML VIAL ONE (10:04)
[2024-05-15] MEDS: HYDROCHLOROTHIAZIDE 12.5 MG CAPSULE (FP) PO SCH (10:15)
[2024-05-15] MEDS: TAMSULOSIN HCL 0.4 MG CAP PO SCH (10:15)
[2024-05-15] MEDS: ASPIRIN COATED 81 MG TABLET.EC PO SCH (10:15)
[2024-05-15] MEDS: LOSARTAN POTASSIUM 50 MG TABLET PO SCH (10:15)
[2024-05-15] MEDS: metoPROLOL SUCCINATE 25 MG TAB.SR.24H (FP) PO SCH (10:16)
[2024-05-15] MEDS: HEPARIN NA (PORCINE) 5,000 UNITS/ML 1ML VIAL SQ SCH (10:16)
[2024-05-15] MEDS: PANTOPRAZOLE 40 MG TABLET PO SCH (10:16)
[2024-05-15] MEDS ORDERED: HALOPERIDOL LACTATE 5 MG/ML ONE (14:24)
[2024-05-15 17:40] VITALS: BMI 21.9
[2024-05-15] MEDS: HALOPERIDOL LACTATE 5 MG/ML IM PRN (18:57)
[2024-05-15] MEDS: MEMANTINE HCL 10 MG TABLET (FP) PO SCH (21:48)
[2024-05-15] MEDS: DONEPEZIL HCL 10 MG TABLET (FP) PO SCH (21:48)
[2024-05-15] MEDS: QUEtiapine FUMARATE 25 MG TABLET PO SCH (21:49)
[2024-05-15] MEDS: ATORVASTATIN CA 10 MG TABLET (FP) PO SCH (21:49)
[2024-05-16 09:29] LABS: BASO % 0.5 % (0-2.0); EOS % 6.5 % (0-4.5); HEMATOCRIT 39.3 % (35.4-49); HEMOGLOBIN 13.2 GM/dL (11.7-16.9); LYMPH % 30.9 % (8-40); MCH 28.2 pg (25.7-33.7); MCHC 33.6 g/dl (32.0-35.9); MEAN CELL VOLUME 84.1 fl (80-96); MEAN PLT VOLUME 7.8 fl (7.5-11.1); MONO % 10.6 % (3.8-10.2); NEUT % 51.5 % (42.8-82.8); PLATELET COUNT 162 10^3/uL (134-434); RBC 4.67 M/mm3 (4.00-5.60)
[2024-05-16 09:58] LABS: POTASSIUM 3.8 mmol/L (3.5-5.1)
[2024-05-16 10:16] LABS: ALBUMIN 3.7 g/dl (3.4-5.0); CALCIUM 9.2 mg/dL (8.5-10.1)
[2024-05-16 10:17] LABS: BLOOD UREA NITROGEN 19.3 mg/dL (7-18)
[2024-05-16 10:20] LABS: BILIRUBIN,TOTAL 0.6 mg/dL (0.2-1); CREATININE 1.7 mg/dL (0.55-1.3)
[2024-05-16 10:21] LABS: TOT PROT 6.9 g/dl (6.4-8.2)
[2024-05-16 17:59] LABS: URINE APPEARANCE CLEAR; URINE BILIRUBIN NEGATIVE (NEGATIVE); URINE COLOR YELLOW; URINE GLUCOSE (UA) NEGATIVE (NEGATIVE); URINE KETONE NEGATIVE (NEGATIVE); URINE LEUK ESTERASE NEGATIVE (NEGATIVE); URINE NITRITE NEGATIVE (NEGATIVE); URINE PROTEIN NEGATIVE (NEGATIVE); URINE UROBILINOGEN 0.2 mg/dL (0.2-1.0)
[2024-05-17 09:53] LABS: BASO % 0.7 % (0-2.0); EOS % 7.3 % (0-4.5); HEMOGLOBIN 13.3 GM/dL (11.7-16.9); MCH 27.5 pg (25.7-33.7); MCHC 32.5 g/dl (32.0-35.9); MEAN CELL VOLUME 84.8 fl (80-96); MEAN PLT VOLUME 8.2 fl (7.5-11.1); MONO % 9.2 % (3.8-10.2); NEUT % 54.8 % (42.8-82.8); PLATELET COUNT 177 10^3/uL (134-434); RBC 4.83 M/mm3 (4.00-5.60); RDW 14.9 % (11.9-15.9); WHITE BLOOD COUNT 7.2 K/mm3 (4.0-10.0)
[2024-05-17 12:28] LABS: ALBUMIN 3.8 g/dl (3.4-5.0); BILIRUBIN,TOTAL 0.4 mg/dL (0.2-1); BLOOD UREA NITROGEN 23.6 mg/dL (7-18); CALCIUM 9.3 mg/dL (8.5-10.1); CREATININE 1.8 mg/dL (0.55-1.3); POTASSIUM 3.5 mmol/L (3.5-5.1); TOT PROT 7.2 g/dl (6.4-8.2)
[2024-05-18 09:10] LABS: BASO % 0.6 % (0-2.0); EOS % 2.1 % (0-4.5); HEMATOCRIT 44.5 % (35.4-49); HEMOGLOBIN 14.4 GM/dL (11.7-16.9); LYMPH % 23.3 % (8-40); MCH 27.9 pg (25.7-33.7); MCHC 32.3 g/dl (32.0-35.9); MEAN CELL VOLUME 86.4 fl (80-96); MEAN PLT VOLUME 8.1 fl (7.5-11.1); MONO % 8.6 % (3.8-10.2); NEUT % 65.4 % (42.8-82.8); PLATELET COUNT 160 10^3/uL (134-434); RBC 5.15 M/mm3 (4.00-5.60); RDW 15.2 % (11.9-15.9); WHITE BLOOD COUNT 7.2 K/mm3 (4.0-10.0)
[2024-05-18 09:43] LABS: POTASSIUM 3.8 mmol/L (3.5-5.1)
[2024-05-18 09:48] LABS: BLOOD UREA NITROGEN 26.2 mg/dL (7-18); CALCIUM 9.3 mg/dL (8.5-10.1)
[2024-05-18 09:50] LABS: MAGNESIUM 2.2 mg/dL (1.8-2.4)
[2024-05-18 09:54] LABS: BILIRUBIN,TOTAL 0.4 mg/dL (0.2-1); TOT PROT 7.5 g/dl (6.4-8.2)
[2024-05-18] MEDS: QUEtiapine FUMARATE 25 MG TABLET PO SCH ×2 (10:39→22:39)
[2024-05-18] MEDS: SOLIFENACIN SUCCINATE 5 MG TAB PO SCH (10:40)
[2024-05-19 09:05] LABS: BASO % 0.7 % (0-2.0); EOS % 6.4 % (0-4.5); LYMPH % 25.4 % (8-40); MCH 27.6 pg (25.7-33.7); MCHC 32.6 g/dl (32.0-35.9); MEAN CELL VOLUME 84.7 fl (80-96); MEAN PLT VOLUME 8.3 fl (7.5-11.1); MONO % 10.7 % (3.8-10.2); NEUT % 56.8 % (42.8-82.8); PLATELET COUNT 171 10^3/uL (134-434); RBC 4.72 M/mm3 (4.00-5.60); RDW 14.9 % (11.9-15.9)
[2024-05-19 09:24] LABS: POTASSIUM 3.7 mmol/L (3.5-5.1)
[2024-05-19 10:05] LABS: ALBUMIN 3.7 g/dl (3.4-5.0); BLOOD UREA NITROGEN 31.7 mg/dL (7-18); CALCIUM 9.2 mg/dL (8.5-10.1); MAGNESIUM 2.2 mg/dL (1.8-2.4)
[2024-05-19 10:09] LABS: BILIRUBIN,TOTAL 0.6 mg/dL (0.2-1); TOT PROT 6.9 g/dl (6.4-8.2)
[2024-05-20 09:30] LABS: BASO % 0.7 % (0-2.0); EOS % 8.1 % (0-4.5); HEMATOCRIT 39.7 % (35.4-49); HEMOGLOBIN 13.3 GM/dL (11.7-16.9); LYMPH % 28.4 % (8-40); MCHC 33.5 g/dl (32.0-35.9); MEAN CELL VOLUME 83.5 fl (80-96); MEAN PLT VOLUME 7.7 fl (7.5-11.1); MONO % 9.9 % (3.8-10.2); NEUT % 52.9 % (42.8-82.8); PLATELET COUNT 166 10^3/uL (134-434); RBC 4.76 M/mm3 (4.00-5.60); RDW 15.1 % (11.9-15.9); WHITE BLOOD COUNT 6.8 K/mm3 (4.0-10.0)
[2024-05-20 09:55] LABS: POTASSIUM 3.5 mmol/L (3.5-5.1)
[2024-05-20 10:05] LABS: ALBUMIN 3.6 g/dl (3.4-5.0); CALCIUM 9.3 mg/dL (8.5-10.1); MAGNESIUM 2.1 mg/dL (1.8-2.4)
[2024-05-20 10:06] LABS: BLOOD UREA NITROGEN 33.9 mg/dL (7-18)
[2024-05-20 10:09] LABS: BILIRUBIN,TOTAL 0.6 mg/dL (0.2-1); CREATININE 1.9 mg/dL (0.55-1.3); TOT PROT 7.1 g/dl (6.4-8.2)
[2024-05-20 15:34] VITALS: RESP 18
[2024-05-20 21:27] VITALS: PULSE 76
[2024-05-21 07:41] VITALS: BP 138/77; TEMP 98.1
== END 2024-05-21 12:44 | disposition home health service (06) | DRG 884 ==
LOC: JER 03:53 → JERBED 08:35 → OBSVTOIN 09:42 → J8W 15:03
PROVIDERS: ADMIT Internal Medicine; ATTEND Internal Medicine
DX: F03.918 Unspecified dementia, unspecified severity, with other behavioral disturbance (principal); E43 Unspecified severe protein-calorie malnutrition; I25.10 Atherosclerotic heart disease of native coronary artery without angina pectoris; N18.9 Chronic kidney disease, unspecified; I12.9 Hypertensive chronic kidney disease with stage 1 through stage 4 chronic kidney disease, or unspecified chronic kidney disease; R41.82 Altered mental status, unspecified; Z68.22 Body mass index [BMI] 22.0-22.9, adult; E78.5 Hyperlipidemia, unspecified; N40.0 Benign prostatic hyperplasia without lower urinary tract symptoms
CPT/HCPCS: 0241U-QW; 36415; 70450-TC; 71045-TC-FY; 76775-TC; 80053; 81003; 82962; 83036; 83735; 84443; 84484; 85025; 87086; 93005; 93010; 97116-GP; 97161-GP; 99285-25; G0378; J1644